=== PATIENT | male | born 2000 | race Asian ===

== ENCOUNTER 2024-07-18 04:18 | Emergency (ER) | payer OTHER ==
[~2024-07-18] VITALS: Ht 177.8 cm; Wt 68.0 kg
[2024-07-18] MEDS ORDERED: IBUPROFEN 600 MG TABLET ONE (04:43)
[2024-07-18] MEDS: IBUPROFEN 600 MG TABLET PO ONE (04:45)
[2024-07-18 05:50] VITALS: BP 121/75; TEMP 98.6; O2SAT 95
== END 2024-07-18 05:50 | disposition home or self-care (01) ==
LOC: ER 04:32
DX: S80.02XA Contusion of left knee, initial encounter (principal); S60.511A Abrasion of right hand, initial encounter; S60.811A Abrasion of right wrist, initial encounter; S09.90XA Unspecified injury of head, initial encounter; V43.62XA Car passenger injured in collision with other type car in traffic accident, initial encounter; Y93.89 Activity, other specified; Y92.488 Other paved roadways as the place of occurrence of the external cause; Y99.8 Other external cause status
CPT/HCPCS: 70450-TC; 73120-TC; 73564-TC